=== PATIENT | male | born 1995 | race African-American/Black ===

== ENCOUNTER 2020-04-08 00:43 | Emergency (ER) | payer MEDICAID ==
[~2020-04-08] VITALS: Ht 188 cm; Wt 70.5 kg
[2020-04-08] MEDS ORDERED: CLEOCIN300 MG PO (01:35)
[2020-04-08] MEDS ORDERED: NAPROXEN500 MG PO (01:35)
[2020-04-08] MEDS ORDERED: CIPROFLOXACN500 MG PO (01:35)
[2020-04-08 02:15] VITALS: BP 131/80
== END 2020-04-08 02:15 | disposition home or self-care (01) | DRG 605 ==
LOC: ED 00:43
PROC: 0HQFXZZ Repair Right Hand Skin, External Approach (ICD-10-PCS; principal; 2020-04-08)
DX: S61.451A Open bite of right hand, initial encounter (principal); W54.0XXA Bitten by dog, initial encounter; Y92.009 Unspecified place in unspecified non-institutional (private) residence as the place of occurrence of the external cause